=== PATIENT | female | born 1955 | race Caucasian/White ===

== ENCOUNTER 2016-11-07 12:08 | Emergency (ER) | payer OTHER ==
[~2016-11-07] VITALS: Ht 170.2 cm; Wt 103.0 kg
[~2016-11-07 12:08] MED LIST: ESTR42.5V VAGINAL; PROZ20CA11 PO; ROSU1TAB6 PO
[2016-11-07 12:12] VITALS: BP 180/111; PULSE 75; RESP 16; TEMP 98.7; O2SAT 96
--- NOTE | 2016-11-07 12:20 | PD ---
HPI Chief Complaint: Laceration/Skin Injury Time Seen by Provider: 12:20 Travel History International Travel<30 days: No Contact w/Intl Traveler<30days: No Traveled to known affect area: No History of Present Illness HPI 61-year-old female presents the emergency department status post laceration to the right medial thumb from a water faucet in the shower that broke she was shutting off. Patient has full function of the thumb but has a large jagged laceration with bleeding. She states numbness along the medial aspect of the thumb distal to the wound. Patient is unsure of her last tetanus shot. She is allergic to sulfa. PFSH Past Medical History Hx Anticoagulant Therapy: No Depression: Yes Cardiovascular Problems: Yes (CHOL) High Cholesterol: Yes Diabetes: No Diminished Hearing: No Headaches: Yes ?: Not Menopausal: Yes Past Surgical History Appendectomy: Yes Social History Alcohol Use: Yes (1-2 [employer]) Tobacco Use: No Substance Use: No Allergies-Medications (Allergen,Severity, Reaction): Coded Allergies: Sulfa (Verified Allergy, Severe, RASH, 11/07/16) Reported Meds & Prescriptions Reported Meds & Active Scripts Active Rosuvastatin (Rosuvastatin Calcium) 10 Mg Tab 10 Mg PO HS Prozac (Fluoxetine HCl) 20 Mg Cap 20 Mg PO DAILY Review of Systems Except as stated in HPI: all other systems reviewed are Neg General / Constitutional: No: Fever Eyes: No: Visual changes HENT: No: Headaches Cardiovascular: No: Chest Pain or Discomfort Respiratory: No: Shortness of Breath Gastrointestinal: No: Abdominal Pain Genitourinary: No: Dysuria Musculoskeletal: No: Pain Skin: No Rash Neurologic: No: Weakness Psychiatric: No: Depression Endocrine: No: Polydipsia Hematologic/Lymphatic: No: Easy Bruising Physical Exam Narrative GENERAL: Patient appears in mild distress. SKIN: Warm and dry. Normal color. Normal turgor. Patient has an L-shaped 3 cm laceration to the left distal medial thigh but does not involve the nail bed. HEAD: Atraumatic. Normocephalic. EYES: Pupils equal and round. No scleral icterus. No injection or drainage. ENT: No nasal bleeding or discharge. Mucous membranes pink and moist. Pharynx is clear. NECK: Trachea midline. Supple and nontender. CARDIOVASCULAR: Regular rate and rhythm. RESPIRATORY: No accessory muscle use. MUSCULOSKELETAL: Extremities without clubbing, cyanosis, or edema. No obvious deformities. Left thumb is full range of motion, with no obvious signs of tendon or ligament damage. Patient states numbness to the medial aspect distal to the wound. No other significant findings are noted. NEUROLOGICAL: Awake and alert. No obvious cranial nerve deficits. Motor grossly within normal limits. Five out of 5 muscle strength in the arms and legs. Normal speech. PSYCHIATRIC: Appropriate mood and affect; insight and judgment normal. Data Data Last Documented VS Vital Signs Date Time Temp Pulse Resp B/P Pulse Ox O2 Delivery O2 Flow Rate FiO2 11/07/16 12:12 98.7 75 16 180/111 96 Orders Lidocai-Epi 1%-1:100,000 Inj (Xylocaine- (11/07/16 12:45) Tetanus/Diphtheria Tox Adult (Tetanus/Di (11/07/16 12:45) MDM Medical Decision Making Medical Screen Exam Complete: Yes Emergency Medical Condition: Yes Differential Diagnosis Right thumb laceration. Paresthesia. Need for sutures. Narrative Course Patient is medically stable at time of exam. Patient is given tetanus IM. Laceration was repaired and bulky dressing is placed. Patient is placed on Keflex 500 mg 3 times a day 7 days. Dressing is to remain in place for the next 3 days, or longer if kept clean and dry. Patient keep sutures in for 7-10 days. Patient can return here for wound check in 7-10 days and suture removal. Patient can return sooner as needed. Procedures Procedure Narrative LACERATION LOCATION: Right medial thumb LENGTH: 3 cm NUMBER OF STITCHES/KELSEY: 9 simple interrupted REPAIR: The area of the laceration was prepped with Betadine and sterilely draped. The laceration was infiltrated with 3 mL was 1% lidocaine with epi. The wound was copiously irrigated and explored without evidence of foreign body , tendon injury or neurovascular injury. The wound was closed using 6-0 Prolene. This was a single layer repair. A sterile dressing was applied. The patient was advised to keep the dressing clean and dry. Patient tolerated the procedure well. Diagnosis Primary Impression: Laceration of right thumb without complication Qualified Code: S61.011A - Laceration of right thumb without complication, initial encounter Referrals: Primary Care Physician Patient Instructions: Finger Laceration (ED), General Instructions Additional Instructions: Patient is medically stable at time of exam. Patient is given tetanus IM. Laceration was repaired and bulky dressing is placed. Patient is placed on Keflex 500 mg 3 times a day 7 days. Dressing is to remain in place for the next 3 days, or longer if kept clean and dry. Patient keep sutures in for 7-10 days. Patient can return here for wound check in 7-10 days and suture removal. Patient can return sooner as needed. Med/Other Pt SpecificInfo: Prescription(s) given, Wound Care Disposition: 01 DISCHARGE HOME Condition: Stable Kodi Phoenix Nov 07, 2016 12:20
[2016-11-07] MEDS ORDERED: LIDOCAINE 1%/EPINEPHrine 1:100,000 SOLN 20 ML VIAL INFIL ONE (12:45)
[2016-11-07] MEDS ORDERED: TETANUS/DIPHTHERIA TOXOID ADULT 0.5 ML VIAL IM ONE (12:45)
[2016-11-07] MEDS ORDERED: TETANUS/DIPHTHERIA TOXOID PEDIATRIC 0.5 ML VIAL IM ONE (12:45)
[2016-11-07] MEDS ORDERED: CEPH-460 PO (13:15)
[2016-11-18] MEDS ORDERED: CLIN1CAP6 PO (09:11)
[2016-11-20] MEDS ORDERED: ESTR42.5V VAGINAL ×2 (15:03→16:15)
[2016-11-20] MEDS ORDERED: FISH100020 PO (15:03)
[2016-11-20] MEDS ORDERED: ROSU1TAB6 PO (15:03)
[2016-11-20] MEDS ORDERED: MULT1TAB84 PO (15:03)
[2016-11-20] MEDS ORDERED: ASPI325T PO (15:03)
[2016-12-05] MEDS ORDERED: ROSU1TAB8 PO (09:30)
== END 2016-11-07 13:28 | disposition home or self-care (01) ==
LOC: PHEFT 12:08
DX: S61.011A Laceration without foreign body of right thumb without damage to nail, initial encounter (principal); E78.00 Pure hypercholesterolemia, unspecified; Z23 Encounter for immunization; W45.8XXA Other foreign body or object entering through skin, initial encounter; Y93.89 Activity, other specified; Y92.002 Bathroom of unspecified non-institutional (private) residence as the place of occurrence of the external cause; Y99.9 Unspecified external cause status
CPT/HCPCS: 12002; 90471; 90714

== ENCOUNTER 2018-03-17 09:09 | Observation (INO) ==
[2018-03-17] MEDS ORDERED: Metoprolol Tartrate 25 MG Tablet PO SCH (09:45)
[2018-03-17] MEDS ORDERED: Chlorhexidine Gluconate 2% 1 Pack (2 Cloths) TOPICAL SCH (09:45)
[2018-03-17] MEDS ORDERED: Sodium Chlor 0.9% Inj 500 ML IV.SIG SCH (10:00)
[2018-03-17] MEDS ORDERED: Glycopyrrolate Inj 1 MG/5 ML Syringe IV.PUSH ONE (12:00)
[2018-03-17] MEDS ORDERED: Neostigmine Inj 5 MG/5 ML Syringe IV.PUSH ONE (12:00)
[2018-03-17] MEDS ORDERED: Lidocaine PF 1% Inj 5 ML Syringe INFILTRATN ONE (12:00)
[2018-03-17] MEDS ORDERED: Morphine Inj 4 MG/ML Vial ONE (14:44)
[2018-03-17] MEDS ORDERED: fentaNYL Citrate Inj 100 MCG/2 ML Ampul ONE (14:44)
[2018-03-17] MEDS ORDERED: Ibuprofen 600 MG Tablet PO PRN (14:55)
[2018-03-17] MEDS ORDERED: Zolpidem Tartrate 5 MG Tablet PO PRN (14:55)
[2018-03-17] MEDS ORDERED: *morphine SULFATE 10 MG/ML PERIprocedure ONLY ONE (15:32)
--- NOTE | 2018-03-17 16:51 | P.OP ---
- Preoperative Diagnosis (1) Ovarian mass, left (2) Post-menopausal bleeding (3) Endometrial polyp (4) Thickened endometrium - Postoperative Diagnosis (1) Submucous uterine fibroid (2) Endometrial polyp (3) Ovarian mass, left (4) Post-menopausal bleeding Date of procedure: 03/17/18 Procedure: D+C, Hysteroscopic exam with polypectomy X2, myomectomy. Laparoscopic exam with EMELINA and BSO Dr Lucas ran the bowels to R/O bowel injury. Anesthesia: GETA Surgeon: MD Ced Aaron MD Estimated blood loss (mL): 50 Pathology: other (endometrial currettings, endometrial polyp and myoma, tubes and ovaries.) Operation and Findings: Findings examination under anesthesia revealed the uterus to be normal size shape and consistency and freely mobile there was no adnexal mass the hysteroscopic exam revealed 2 large endometrial polyps and a small submucous myoma. The laparoscopic exam revealed normal uterus normal fallopian tubes the right ovary was perfectly normal the left ovary was encased in flimsy and thick adhesions which were all taken down there was a follicular cyst of the left ovary as well. The posterior and anterior cul-de-sac were without any endometriosis or other lesions there was just quite a bit of adhesions around that left ovary. Counts were correct Estimated blood loss 50 cc Complications upon entering the abdomen with a 5 mm trocar I may have gone into the omentum and possibly into the small bowel. Therefore Dr. Ash Lucas came in to assess the damage ran the bowel and there was no bowel injury,. Procedure in detail patient was taken to the operating theater identified by name band and verbally given a general anesthetic. She was prepped and draped in the usual sterile manner for laparoscopic vaginal surgery. A timeout was taken and a Pro catheter was inserted. An examination under anesthesia was carried out with the above findings. A speculum was placed into the vagina the anterior lip of the cervix was grasped with a single-tooth tenaculum the cervix was serially dilated to allow a hysteroscopic exam of the hysteroscopic exam revealed large polyps in the submucous myoma. I called for the mild sugar device and with a mild shirt device I removed both polyps completely and removed at submucous myoma as well. At this point a #1 sharp curette was passed through the cervix and the entire endometrial surface was sharply curetted. The Hulka clamp was placed and attention was turned to the subumbilical area. A small subumbilical incision was made and using a 5 mm meter trocar the abdomen was entered. It looks like had gone through the omentum while creating the pneumoperitoneum. As we moved the laparoscope and trocar back I may have seen the inside of the bowel and general surgery was called to ensure there was no bowel and. The second puncture was placed on the right side inferior lateral to the umbilicus with a 5 mm trocar and on the left side we placed a 12 mm trocar. We began with the right side which looks fairly normal we removed the fallopian tube by taking down the mesosalpinx with the harmonic scalpel. We then took down the infundibulopelvic ligament staying very close to the ovary and the ovary was then placed into a Endo Catch bag and removed through the 12 mm trocar site without difficulty. Attention was turned to the left side which was more challenging we removed that fallopian tube with the harmonic scalpel taking it down along the mesosalpinx we then spent quite a bit of time taking down the adhesions which encase to the ovary once freed up the ovary and pulled it medially we took down the infundibulopelvic ligament with the harmonic scalpel hemostasis was excellent this ovary was placed into an Endo Catch bag and was too large to pull through the 12 mm trocar site. We lifted the bag up through the incision so we could see the ovary clearly placed a needle into the ovarian mass and kim off about 12 cc of clear yellow fluid. This allowed the entire ovary to be pulled through the incision without difficulty. There was an absolutely no spillage of the ovarian fluid into the body. At this point a we used a suction building maintenance engineer and irrigated the pelvis is a large amount of fluid. At this point Dr. Lucas came in and ran the bowels and he will dictate that portion of the note. There was no bowel injury but we did put a small rent into the mesentery it was not bleeding and he felt confident there was no bowel injury. At this point the fascia was repaired with a 2-0 Vicryl on the 12 mm trocar site air was released to the first and second 5 mm trochars and the skin was then repaired with 4-0 Monocryl subcuticular fashion the wounds were sterilely dressed she tolerated the procedure well and went to recovery room in good condition. We will keep her here for a few hours and if she desires to go home and meets criteria I will allow her to go home otherwise I will keep her overnight. She tolerated the procedure well went home to recovery room in good condition
[2018-03-18 05:58] LABS: Baso % (Auto) 0.4 % (0.0-2.0); Hematocrit 37.1 % (35.0-46.0); Hemoglobin 12.6 gm/dL (11.6-15.3); Lymph # (Auto) 1.2 th/mm3 (1.0-4.8); Lymph % (Auto) 13.7 % (9.0-44.0); Mean Corpuscular Hemoglobin 31.6 pg (27.0-34.0); Mean Corpuscular Volume 92.9 fL (80.0-100.0); Mean Platelet Volume 8.6 fL (7.0-11.0); Mono # (Auto) 0.4 th/mm3 (0.0-0.9); Mono % (Auto) 4.7 % (0.0-8.0); Neut % (Auto) 81.2 % (16.0-70.0); Platelet Count 185 th/mm3 (150-450); Red Cell Distribution Width 13.7 % (11.6-17.2); White Blood Count 8.6 th/mm3 (4.0-11.0)
[2018-03-18] MEDS ORDERED: Levothyroxine 50 MCG Tablet PO SCH (06:00)
--- NOTE | 2018-03-18 07:46 | P.PNOB ---
Assessment and Plan - Postoperative Procedures Operation Date: 03/17/18 11:00 Actual Procedures Side Surgeon p HYSTEROSCOPY WITH MYOSURE, D&C, LAPAROSCOPIC BILATERAL SALPINGO-OOPHORECTOMY AND RUNNING OF THE BOWEL Left Demarco Santamaria MD s ADDITONAL CARD ASSIGNED Demarco Santamaria MD Postoperative day: 1 Postoperative status: doing well - Time Spent With Patient Total time spent is greater than 50% in coordination of care (as documented) at patient's floor/unit and/or counseling patient: Subjective Subjective: patient reports feeling better, patient has no complaints, patient desires discharge, pain is well controlled, patient is tolerating oral intake Physical Exam Vital signs: Temp Pulse Resp BP Pulse Ox 98.2 F 68 18 142/71 H 95 03/18/18 04:27 03/18/18 04:27 03/18/18 04:27 03/18/18 04:27 03/18/18 04:27 - Constitutional no acute distress - Routine Respiratory Exam Present: CTA bilaterally - Routine Abdominal Exam Present: soft, normoactive bowel sounds - Urinary Catheter Management Indwelling Urethral Catheter Cath placed during this visit: yes, but has since been removed by the nurse Insertion date: 03/17/18 Insertion time: 11:45 Removal date: 03/17/18 Removal time: 16:00 Results - Labs CBC & Chem 7: 03/18/18 05:30 Labs: Laboratory Results - last 24 hr 03/18/18 05:30 WBC 8.6 RBC 4.00 Hgb 12.6 Hct 37.1 MCV 92.9 MCH 31.6 MCHC 34.0 RDW 13.7 Plt Count 185 MPV 8.6 Neut % (Auto) 81.2 H Lymph % (Auto) 13.7 Gove % (Auto) 4.7 Eos % (Auto) 0.0 Baso % (Auto) 0.4 Neut # (Auto) 7.0 Lymph # (Auto) 1.2 Gove # (Auto) 0.4 Eos # (Auto) 0.0 Baso # (Auto) 0.0 WBC Differential . Differential Comment Auto diff final
[2018-03-18] MEDS ORDERED: Aspirin 325 MG Tablet PO SCH (09:00)
[2018-03-18] MEDS ORDERED: FLUoxetine 20 MG Capsule PO SCH (09:00)
--- NOTE | 2018-03-18 16:23 | MP ---
cc: Ash Lucas MD, R John MD DATE OF OPERATION: 03/18/2018 PREOPERATIVE DIAGNOSIS: Bilateral oophorectomies with a question of tissue disruption with trocar. POSTOPERATIVE DIAGNOSIS: Bilateral oophorectomies with a question of tissue disruption with trocar, with very minimal mesenteric tissue disruption. No evidence of small-bowel involvement. ANESTHESIA: General endotracheal. SURGEON: Ash Lucas MD. ESTIMATED BLOOD LOSS: 5 mL. COMPLICATIONS: None. FINDINGS: Very small tissue defect in mesentery near the ileum. No other injuries noted. PROCEDURE IN DETAIL: Undersigned scrubbed in after Dr. Santamaria completed the MEDICATION TECH portion of the procedure. I recommended that he complete this first, as there was no evidence of any significant tissue defect or injury. When he completed this portion of the procedure, undersigned scrubbed in and utilizing bariatric grasping forceps; the small bowel was run from the ligament of Treitz to the ileocecal valve utilizing the previously-placed trocars by Dr. Santamaria. There was no evidence of any defect in the small bowel whatsoever. The colon appeared intact as well. After running the entire small bowel, the only small defect that could be seen was a very minimal defect in the mesentery near the ileum. This was not bleeding and the bowel in this area was completely viable as well. At the completion of the procedure, jasson scrubbed out and Dr. Santamaria completed the case. The patient remained stable throughout the procedure. Plan is to have the patient stay overnight for observation and be discharged in the morning first thing. MD ANGEL Campo/magnus , 04:02 PM , 04:08 PM YAMILETH
--- NOTE | 2018-03-18 16:33 | MB ---
cc: Ash Lucas MD DATE: 03/17/2018 REASON FOR CONSULTATION: Intraoperative consultation for patient. HISTORY OF PRESENT ILLNESS: Dr. Xavier Santamaria asked me to evaluate this patient intraoperatively. During laparoscopic procedure for oophorectomy, there was concern that one of the trocars placed may have caused injury to omentum or mesentery or another structure. Dr. Santamaria asked the undersigned to scrub in to evaluate the patient. PAST MEDICAL HISTORY: As in the chart. This procedure was performed under separate dictation during patient's general anesthetic. Please see this dictation for this portion of the procedure. MD ANGEL Campo/rd , 03:58 PM , 04:04 PM
== END 2018-03-18 08:54 | disposition home or self-care (01) ==
LOC: HOR 09:09 → HSDI 09:09 → H1EA 16:19
PROVIDERS: ADMIT Obstetrics & Gynecology; ATTEND Obstetrics & Gynecology